=== PATIENT | male | born 1985 | race Caucasian/White ===

== ENCOUNTER 2017-02-18 09:41 | Emergency (ER) | payer MEDICAID, OTHER ==
[~2017-02-18] VITALS: Ht 170.2 cm; Wt 70.5 kg
[~2017-02-18 09:41] MED LIST: NOMED
[2017-02-18 09:45] VITALS: BP 135/78; PULSE 62; RESP 14; O2SAT 100
--- NOTE | 2017-02-18 09:53 | ED.REPORT ---
HPI-Extremity Problem Upper Date of Service Feb 18, 2017 ED Provider: Bello Arias MD Pt is a 31 y.o. male who presents to the ED c/o left elbow pain onset 2 days ago. 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 He reports associated numbness radiating to his left forearm. Pt denies left hand numbness or pain and decreased ROM. Nursing Notes Stated Complaint: ELBOW PAIN Chief Complaint: Extremity Trauma Nursing Notes Reviewed: Yes Allergies: Coded Allergies: Sulfa (Sulfonamide Antibiotics) (Verified Allergy, Severe, breathing difficulty, 02/18/17) Miscellaneous Medications No Historical Medication (No Historical Medication) Ea General Time Seen by MD: 09:52 Chief Complaint Elbow injury left Hx Obtained From: Patient Arrived By: Walk-in Onset Occurred: 2 days ago Symptom Duration: Since onset Caused by: Accidental Context: Occurred at: Home injury Location: : Elbow left Severity: Current: Mild Recent Healthcare: No recent doctor visit, No recent hospitalization Similar Sx Previous: No Past Medical History Past Medical History Denies Past Surgical History None reported Social History Other Social History: Good social support, Ambulatory Status Independent Review of Systems Musculoskeletal: Reports: Joint pain (Left elbow), Denies: Extremity pain (Left hand) Neurologic: Reports: Numbness (Left elbow) Complete sys rev & neg: except as marked. Physical Exam Initial Vital Signs Vital Signs (First) Date Time Temp Pulse Resp B/P Pulse Ox O2 Delivery O2 Flow Rate FiO2 02/18/17 09:45 36.5 62 14 135/78 100 Initial VS: Reviewed Head / Eyes: Atraumatic, Normocephalic, PERRL Abdomen / GI: No distention Lower Extremities: Vascular intact, Neuro intact Skin: Warm, Dry, No cyanosis Neurologic: Alert, Oriented, Nonfocal Psychiatric: Mood/affect normal, Behavior normal, Normal thought content General/Constitutional: Awake, Alert, No acute distress, Well appearing, Well developed, Well hydrated, Well nourished, Not toxic appearing Respiratory / Chest: Atraumatic, Breath sounds NL, No respiratory distress Cardiovascular: Heart rate NL, Regular rhythm, Cap refill not delayed, Peripheral circulation NL Upper Extremity / MS: Atraumatic, Inspection NL, No deformity, Neurologic intact, Vascular intact Left Upper Arm: Positive: Tenderness present... (Mild), Negative: Neuro deficit present, Swelling present... Wrist / Hand: Atraumatic, Inspection NL, Full range of motion, No deformity, Neurologic intact, Vascular intact Re-Eval/Medical Decision Source of Hx: Old records Re-Evaluation/Progress : Time of Eval: 10:00 Re-Evaluation/Progress Note: Discussed with pt diagnosis and plan for discharge, he undertsands and agrees with plan. Counseled Regarding: Diagnosis, Need for follow-up, When/why to return to ED Discharge & Departure Impression: Primary Impression: Neuropraxia of left upper extremity Encounter type: initial encounter Qualified Code: S44.92XA - Injury of unspecified nerve at shoulder and upper arm level, left arm, initial encounter Disposition: Home Discharge Condition All VS Reviewed: Yes Condition: Improved Additional Instructions: The left arm numbness you are experiencing today is related to compression of the nerve and should resolve spontaneously with time. No specific treatment is needed. Follow-up with primary care in about 1 week to ensure that it has resolved. Avoid compressing left elbow and forearm. Recheck for left arm weakness or severe pain. Thanks for trusting us with your care today Referrals: Jann Cheung MD (PCP) Rodriguez Attestation Portions of this note were transcribed by Robby Arellano. I, Dr. Arias personally performed the history, physical exam and medical decision-making; I reviewed and confirmed the accuracy of the information in the transcribed note. Signed by: Rodriguez Butt, 02/18/17 and 1040. copies to: Jann Cheung MD, Donald L MD Feb 18, 2017 09:53 ROBBY ARELLANO Feb 18, 2017 10:24
[2017-02-18 10:20] VITALS: BP 135/78; PULSE 62; RESP 14; O2SAT 100
== END 2017-02-18 10:21 | disposition home or self-care (01) ==
LOC: SED 09:41
DX: S44.92XA Injury of unspecified nerve at shoulder and upper arm level, left arm, initial encounter (principal); X50.1XXA Overexertion from prolonged static or awkward postures, initial encounter; Y92.009 Unspecified place in unspecified non-institutional (private) residence as the place of occurrence of the external cause; Y93.89 Activity, other specified; Y99.8 Other external cause status; R20.2 Paresthesia of skin; Z87.891 Personal history of nicotine dependence; Z88.2 Allergy status to sulfonamides